=== PATIENT | female | born 1990 | race African-American/Black ===

== ENCOUNTER 2021-12-30 21:50 | Emergency (ER) | payer SELFPAY ==
[~2021-12-30] VITALS: Ht 172.7 cm; Wt 85.0 kg
[2021-12-30] MEDS ORDERED: SODIUM CHLORIDE 0.9% 1,000 ML IV ONE (23:00)
[2021-12-30] MEDS ORDERED: OLANZAPINE 10 MG/VIAL IM ONE (23:00)
[2021-12-30] MEDS ORDERED: HALOPERIDOL LACTATE 5MG/ML VIAL IM ONE (23:45)
[2021-12-31] MEDS ORDERED: OLANZAPINE 10 MG/VIAL IM ONE (03:00)
[2021-12-31 03:11] LABS: BASOPHILS % 0.9 % (0.0-2.0); EOSINOPHILS % 3.3 % (0.0-5.0); HEMATOCRIT. 35.5 % (36.0-48.0); HEMOGLOBIN. 11.6 g/dL (12.0-16.0); LYMPHOCYTES % 19.1 % (20.0-50.0); MEAN CORPUSCULAR HEMOGLOBIN 28.8 pg (28.0-32.0); MEAN CORPUSCULAR VOLUME 88.2 fL (81.0-99.0); MEAN PLATELET VOLUME 8.4 fl (7.4-10.4); MONOCYTES % 7.7 % (2.0-8.0); PLATELET 323 x1000/uL (130-400); RED BLOOD CELL COUNT 4.03 mill/uL (4.2-5.4); RED CELL DISTRIBUTION WIDTH 17.8 % (11.6-14.6)
[2021-12-31 03:39] LABS: CHLORIDE 105 mEq/L (98-107)
[2021-12-31 03:46] LABS: ETHANOL BLOOD < 10 mg/dL
[2021-12-31 04:05] LABS: HCG SCREEN POSITIVE
[2021-12-31 05:24] LABS: *BARBITURATES SCREEN URINE NEGATIVE (NEGATIVE); *BENZODIAZEPINES SCREEN URINE NEGATIVE (NEGATIVE); *COCAINE SCREEN URINE NEGATIVE (NEGATIVE); CANNABINOID URINE SCREEN NEGATIVE (NEGATIVE); METHADONE URINE SCREEN NEGATIVE (NEGATIVE); OPIATES URINE SCREEN NEGATIVE (NEGATIVE); PHENCYCLIDINE URINE SCREEN NEGATIVE (NEGATIVE)
[2021-12-31 05:30] LABS: *AMPHETAMINES SCREEN URINE PRESUMTIVE POSITIVE (NEGATIVE)
[2021-12-31] MEDS ORDERED: PREN-118 PO (07:43)
[2021-12-31 07:53] VITALS: BP 120/70
== END 2021-12-31 07:55 | disposition home or self-care (01) ==
LOC: ER 21:50
DX: O99.320 Drug use complicating pregnancy, unspecified trimester (principal); F16.10 Hallucinogen abuse, uncomplicated; F15.10 Other stimulant abuse, uncomplicated; Z78.1 Physical restraint status; Z3A.00 Weeks of gestation of pregnancy not specified
CPT/HCPCS: 36415; 80053; 80305; 80307; 80320; 80329; 84702; 84703; 85025; 96360; 96372; 99291; J1630; J3490; J7030; G0480